=== PATIENT | female | born 1965 | race African-American/Black ===

== ENCOUNTER 2020-06-01 16:22 | Inpatient (IN) | payer OTHER ==
[~2020-06-01] VITALS: Ht 165.1 cm; Wt 48.3 kg
[2020-06-01] MEDS ORDERED: ENOX40DI9 SQ (20:03)
[2020-06-01] MEDS ORDERED: LISI-661 PO (20:03)
[2020-06-01] MEDS ORDERED: CARV3 PO (20:03)
[2020-06-01] MEDS ORDERED: ZOLPIDEM TARTRATE 10 MG TABLET PO PRN (23:45)
[2020-06-02 00:48] VITALS: BP 127/64
[2020-06-02] MEDS ORDERED: PNEUMOCOCCAL VACCINE POLYVALENT 0.5 ML VIAL [PPSV23] IM ONE (01:30)
[2020-06-02] MEDS ORDERED: INFLUENZA VIRUS VACCINE QVS 2020-21 (6MO+)/PF 60 MCG/0.5 ML SYRINGE IM ONE (01:30)
[2020-06-02] MEDS ORDERED: ALBUTEROL SULFATE HFA 90 MCG/PUFF 8 GM INHALER IH PRN (09:00)
[2020-06-02] MEDS ORDERED: LOPERAMIDE HCL 2 MG CAPSULE PO PRN (09:00)
[2020-06-02] MEDS ORDERED: NICOTINE 14 MG/24 HOUR PATCH TD PRN (09:00)
[2020-06-02] MEDS ORDERED: MAGNESIUM HYDROXIDE SUSPENSION 30 ML UDCUP PO PRN (09:00)
[2020-06-02] MEDS ORDERED: GuaiFENesin/D-METHORPHAN [SUGAR-FREE] 200-20MG/10 ML SYRUP UDCUP PO PRN (09:00)
[2020-06-02] MEDS ORDERED: DOCUSATE SODIUM 100 MG CAPSULE PO PRN (09:00)
[2020-06-02] MEDS ORDERED: ACETAMINOPHEN 325 MG TABLET PO PRN (09:00)
[2020-06-02] MEDS ORDERED: CloNIDine HCL 0.1 MG TABLET PO PRN (09:00)
[2020-06-02] MEDS ORDERED: ONDANSETRON HCL 4 MG TABLET PO PRN (09:00)
[2020-06-02] MEDS ORDERED: PETROLATUM,WHITE 28 GM JELLY TP PRN (09:00)
[2020-06-02] MEDS: LISINOPRIL 10 MG TABLET PO SCH (10:38)
[2020-06-02] MEDS: QUEtiapine FUMARATE 25 MG TABLET PO SCH ×2 (10:38→16:13)
[2020-06-02] MEDS: CARVEDILOL 3.125 MG TABLET PO SCH ×2 (10:38→16:13)
[2020-06-02 12:54] VITALS: BP 121/76
[2020-06-02] MEDS: LORazepam 2 MG TABLET PO PRN (13:03)
[2020-06-02] MEDS: HALOPERIDOL 5 MG TABLET PO PRN (13:03)
[2020-06-02 16:11] VITALS: BP 118/67
[2020-06-02] MEDS ORDERED: GLUCAGON,HUMAN RECOMBINANT 1 MG VIAL IM PRN (21:45)
[2020-06-02 23:58] LABS: GLUCOMETER DEV NAME(LOC) BV3S.; GLUCOSE,POINT OF CARE 218 MG/DL (70-110)
[2020-06-03 00:37] VITALS: BP 105/69
[2020-06-03] MEDS: INSULIN LISPRO 100 UNITS/ML SQ PRN ×3 (07:15→21:13)
[2020-06-03 07:18] LABS: GLUCOMETER DEV NAME(LOC) BV3S.; GLUCOSE,POINT OF CARE 257 MG/DL (70-110)
[2020-06-03 08:08] VITALS: BP 107/67
[2020-06-03] MEDS: CARVEDILOL 3.125 MG TABLET PO SCH ×2 (09:35→16:24)
[2020-06-03] MEDS: QUEtiapine FUMARATE 25 MG TABLET PO SCH ×2 (09:35→16:24)
[2020-06-03] MEDS: LISINOPRIL 10 MG TABLET PO SCH (09:35)
[2020-06-03 10:05] VITALS: BP 110/74
[2020-06-03] MEDS: LORazepam 2 MG TABLET PO PRN ×2 (10:05→16:24)
[2020-06-03 12:28] LABS: GLUCOMETER DEV NAME(LOC) BV3S.; GLUCOSE,POINT OF CARE 120 MG/DL (70-110)
[2020-06-03] MEDS ORDERED: NICOTINE POLACRILEX 2 MG LOZENGE PO PRN (12:45)
[2020-06-03 16:05] VITALS: BP 101/60
[2020-06-03 16:45] LABS: GLUCOMETER DEV NAME(LOC) BV3S.; GLUCOSE,POINT OF CARE 197 MG/DL (70-110)
[2020-06-03 22:02] LABS: GLUCOMETER DEV NAME(LOC) BV3S.; GLUCOSE,POINT OF CARE 243 MG/DL (70-110)
[2020-06-04 01:07] VITALS: BP 100/72
[2020-06-04 06:42] LABS: GLUCOMETER DEV NAME(LOC) BV3S.; GLUCOSE,POINT OF CARE 166 MG/DL (70-110)
[2020-06-04] MEDS: INSULIN LISPRO 100 UNITS/ML SQ PRN ×4 (06:43→20:47)
[2020-06-04 08:06] VITALS: BP 110/74
[2020-06-04] MEDS: BACLOFEN 10 MG TABLET PO SCH (08:42)
[2020-06-04] MEDS: QUEtiapine FUMARATE 25 MG TABLET PO SCH ×2 (08:43→16:16)
[2020-06-04] MEDS: AmLODIPine BESYLATE 10 MG TABLET PO SCH (08:43)
[2020-06-04] MEDS: LISINOPRIL 10 MG TABLET PO SCH (08:43)
[2020-06-04] MEDS: ATORVASTATIN CALCIUM 10 MG TABLET PO SCH (08:43)
[2020-06-04] MEDS: CARVEDILOL 3.125 MG TABLET PO SCH ×2 (08:43→16:16)
[2020-06-04 11:13] LABS: GLUCOMETER DEV NAME(LOC) BV3S.; GLUCOSE,POINT OF CARE 307 MG/DL (70-110)
[2020-06-04 16:04] VITALS: BP 118/78
[2020-06-04] MEDS: DIVALPROEX SODIUM 250 MG DR TABLET PO SCH (16:16)
[2020-06-04 16:25] LABS: GLUCOMETER DEV NAME(LOC) BV3S.; GLUCOSE,POINT OF CARE 164 MG/DL (70-110)
[2020-06-04] MEDS: QUEtiapine FUMARATE 100 MG TABLET PO SCH (20:17)
[2020-06-04 20:32] LABS: GLUCOMETER DEV NAME(LOC) BV3S.; GLUCOSE,POINT OF CARE 242 MG/DL (70-110)
[2020-06-05 05:11] VITALS: BP 114/74
[2020-06-05 06:19] LABS: GLUCOMETER DEV NAME(LOC) BV3S.; GLUCOSE,POINT OF CARE 203 MG/DL (70-110)
[2020-06-05] MEDS: INSULIN LISPRO 100 UNITS/ML SQ PRN ×2 (06:33→21:08)
[2020-06-05 08:22] VITALS: BP 118/79
[2020-06-05] MEDS: ATORVASTATIN CALCIUM 10 MG TABLET PO SCH (08:44)
[2020-06-05] MEDS: BACLOFEN 10 MG TABLET PO SCH (08:44)
[2020-06-05] MEDS: AmLODIPine BESYLATE 10 MG TABLET PO SCH (08:44)
[2020-06-05] MEDS: LISINOPRIL 10 MG TABLET PO SCH (08:44)
[2020-06-05] MEDS: CARVEDILOL 3.125 MG TABLET PO SCH ×2 (08:45→16:24)
[2020-06-05] MEDS: HALOPERIDOL 5 MG TABLET PO PRN (08:45)
[2020-06-05] MEDS: QUEtiapine FUMARATE 25 MG TABLET PO SCH ×2 (08:45→16:24)
[2020-06-05] MEDS: DIVALPROEX SODIUM 250 MG DR TABLET PO SCH ×2 (08:45→16:24)
[2020-06-05] MEDS: LORazepam 2 MG TABLET PO PRN (08:45)
[2020-06-05] MEDS ORDERED: INSULIN LISPRO 100 UNITS/ML SQ ONE (11:15)
[2020-06-05 11:17] LABS: GLUCOMETER DEV NAME(LOC) BV3S.; GLUCOSE,POINT OF CARE 449 MG/DL (70-110)
[2020-06-05 13:53] LABS: GLUCOMETER DEV NAME(LOC) BV3S.; GLUCOSE,POINT OF CARE 105 MG/DL (70-110)
[2020-06-05 16:14] VITALS: BP 121/74
[2020-06-05 16:40] LABS: GLUCOMETER DEV NAME(LOC) BV3S.; GLUCOSE,POINT OF CARE 76 MG/DL (70-110)
[2020-06-05] MEDS: INSULIN GLARGINE,HUM.REC.ANLOG 100 UNITS/ML SQ SCH (17:30)
[2020-06-05] MEDS: QUEtiapine FUMARATE 100 MG TABLET PO SCH (20:51)
[2020-06-05 21:04] LABS: GLUCOMETER DEV NAME(LOC) BV3S.; GLUCOSE,POINT OF CARE 265 MG/DL (70-110)
[2020-06-06 05:32] VITALS: BP 118/70
[2020-06-06] MEDS: IBUPROFEN 400 MG TABLET PO PRN ×2 (05:35→20:01)
[2020-06-06] MEDS: INSULIN LISPRO 100 UNITS/ML SQ PRN ×3 (06:42→16:59)
[2020-06-06 06:49] LABS: GLUCOMETER DEV NAME(LOC) BV3S.; GLUCOSE,POINT OF CARE 178 MG/DL (70-110)
[2020-06-06 08:33] VITALS: BP 100/69
[2020-06-06] MEDS: CARVEDILOL 3.125 MG TABLET PO SCH ×2 (09:00→16:41)
[2020-06-06] MEDS: AmLODIPine BESYLATE 10 MG TABLET PO SCH (09:00)
[2020-06-06] MEDS: LISINOPRIL 10 MG TABLET PO SCH (09:00)
[2020-06-06] MEDS: ATORVASTATIN CALCIUM 10 MG TABLET PO SCH (09:01)
[2020-06-06] MEDS: BACLOFEN 10 MG TABLET PO SCH (09:01)
[2020-06-06] MEDS: QUEtiapine FUMARATE 25 MG TABLET PO SCH ×2 (09:01→16:48)
[2020-06-06] MEDS: DIVALPROEX SODIUM 250 MG DR TABLET PO SCH ×2 (09:02→16:41)
[2020-06-06] MEDS: INSULIN GLARGINE,HUM.REC.ANLOG 100 UNITS/ML SQ SCH ×2 (09:45→16:59)
[2020-06-06 09:53] LABS: GLUCOMETER DEV NAME(LOC) BV3S.; GLUCOSE,POINT OF CARE 331 MG/DL (70-110)
[2020-06-06 12:39] LABS: GLUCOMETER DEV NAME(LOC) BV3S.; GLUCOSE,POINT OF CARE 343 MG/DL (70-110)
[2020-06-06] MEDS: MAG HYDROX/AL HYDROX/SIMETH ES 30 ML SUSPENSION UDCUP PO PRN ×2 (13:29→17:47)
[2020-06-06 16:02] VITALS: BP 110/72
[2020-06-06 16:40] VITALS: BP 115/70
[2020-06-06 18:02] LABS: GLUCOMETER DEV NAME(LOC) BV3S.; GLUCOSE,POINT OF CARE 370 MG/DL (70-110)
[2020-06-06] MEDS: QUEtiapine FUMARATE 100 MG TABLET PO SCH (20:01)
[2020-06-06 21:20] LABS: GLUCOMETER DEV NAME(LOC) BV3S.; GLUCOSE,POINT OF CARE 101 MG/DL (70-110)
[2020-06-07 04:05] VITALS: BP 108/67
[2020-06-07] MEDS: IBUPROFEN 400 MG TABLET PO PRN ×2 (05:02→20:35)
[2020-06-07 05:20] LABS: GLUCOMETER DEV NAME(LOC) BV3S.; GLUCOSE,POINT OF CARE 72 MG/DL (70-110)
[2020-06-07] MEDS: DIVALPROEX SODIUM 250 MG DR TABLET PO SCH ×2 (08:09→16:23)
[2020-06-07] MEDS: QUEtiapine FUMARATE 25 MG TABLET PO SCH (08:09)
[2020-06-07] MEDS: LISINOPRIL 10 MG TABLET PO SCH (08:09)
[2020-06-07] MEDS: BACLOFEN 10 MG TABLET PO SCH (08:09)
[2020-06-07] MEDS: CARVEDILOL 3.125 MG TABLET PO SCH ×2 (08:10→16:46)
[2020-06-07] MEDS: ATORVASTATIN CALCIUM 10 MG TABLET PO SCH (08:10)
[2020-06-07] MEDS: AmLODIPine BESYLATE 10 MG TABLET PO SCH (08:10)
[2020-06-07 08:53] VITALS: BP 107/73
[2020-06-07] MEDS: INSULIN GLARGINE,HUM.REC.ANLOG 100 UNITS/ML SQ SCH ×2 (09:00→16:38)
[2020-06-07 09:09] LABS: BASOPHILS % (AUTO) 0.4 % (0.0-2.0); EOSINOPHILS % (AUTO) 4.3 % (1.0-6.0); HEMATOCRIT 29.8 % (36-46); HEMOGLOBIN 9.4 g/dL (12.0-16.0); LYMPHOCYTES # (AUTO) 1.1 K/uL (1.0-4.8); LYMPHOCYTES % (AUTO) 33.1 % (22.0-44.0); MEAN CORPUSCULAR HEMOGLOBIN 25.4 pg (26.0-34.0); MEAN CORPUSCULAR HGB CONC 31.5 G/dL (31.0-37.0); MEAN CORPUSCULAR VOLUME 81 fL (80-100); MONOCYTES # (AUTO) 0.3 K/uL (0.1-1.0); MONOCYTES % (AUTO) 9.7 % (2.0-9.0); NEUTROPHILS # (AUTO) 1.7 K/uL (1.8-7.7); NEUTROPHILS % (AUTO) 52.5 % (40.0-70.0); RED BLOOD CELL COUNT(AUTO) 3.69 MIL/uL (4.00-5.20); RED CELL DISTRIBUTION WIDTH 14.4 % (11.5-14.5)
[2020-06-07 09:19] LABS: PLATELET COUNT (AUTO) 100 K/uL (150-450)
[2020-06-07 09:22] LABS: COVID AG,FIA SOURCE NASOPHARYNGEAL
[2020-06-07 09:32] LABS: HEMOGLOBIN A1C 7.7 % (3.8-5.6)
[2020-06-07 10:40] LABS: ALANINE AMINOTRANSFERASE 38 U/L (12-78); ALBUMIN 3.1 g/dL (3.4-5.0); ALKALINE PHOSPHATASE 85 U/L (46-116); ANION GAP 7 mmol/L (8-16); ASPARTATE AMINOTRANSFERASE 38 U/L (15-37); BILIRUBIN,TOTAL 0.5 mg/dL (0.1-1.0); CALCIUM, TOTAL 8.6 mg/dL (8.8-10.5); CARBON DIOXIDE 26 mmol/L (22-29); CHLORIDE 102 mmol/L (98-107); CHOL/HDL RATIO 1.8 (3.9-5.7); CHOLESTEROL 98 mg/dL (131-200); CREATININE 0.84 mg/dL (0.60-1.30); FREE T4 (FREE THYROXINE) 1.09 ng/dL (0.76-1.46); GLOMERULAR FILTR. RATE CALC > 60 mL/min (>60); GLUCOSE,RANDOM 100 mg/dL (70-110); HDL CHOLESTEROL 53 mg/dL (40-60); LDL CHOL (CALC.) 38 mg/dL (0-130); POTASSIUM 4.5 mmol/L (3.5-5.1); SODIUM SERUM 135 mmol/L (136-145); THYROID STIMULATING HORMONE 0.67 uIU/mL (0.36-3.74); TOTAL PROTEIN, SERUM 7.2 g/dL (6.4-8.2); TRIGLYCERIDES 37 mg/dL (15-150); UREA NITROGEN, BLOOD 18 mg/dL (7-18)
[2020-06-07] MEDS: INSULIN LISPRO 100 UNITS/ML SQ PRN ×3 (11:46→20:31)
[2020-06-07 13:02] LABS: GLUCOMETER DEV NAME(LOC) BV3N.; GLUCOSE,POINT OF CARE 344 MG/DL (70-110)
[2020-06-07 16:07] VITALS: BP 101/72
[2020-06-07] MEDS: QUEtiapine FUMARATE 100 MG TABLET PO SCH (16:23)
[2020-06-07 16:41] LABS: GLUCOMETER DEV NAME(LOC) BV3S.; GLUCOSE,POINT OF CARE 220 MG/DL (70-110)
[2020-06-07 20:34] LABS: GLUCOMETER DEV NAME(LOC) BV3S.; GLUCOSE,POINT OF CARE 210 MG/DL (70-110)
[2020-06-07] MEDS ORDERED: QUEtiapine FUMARATE 200 MG TABLET PO SCH (21:00)
[2020-06-08 06:19] VITALS: BP 100/61
[2020-06-08 06:28] LABS: GLUCOMETER DEV NAME(LOC) BV3S.; GLUCOSE,POINT OF CARE 116 MG/DL (70-110)
[2020-06-08] MEDS: CARVEDILOL 3.125 MG TABLET PO SCH (08:13)
[2020-06-08] MEDS: LISINOPRIL 10 MG TABLET PO SCH (08:13)
[2020-06-08] MEDS: ATORVASTATIN CALCIUM 10 MG TABLET PO SCH (08:13)
[2020-06-08] MEDS: QUEtiapine FUMARATE 100 MG TABLET PO SCH (08:13)
[2020-06-08] MEDS: AmLODIPine BESYLATE 10 MG TABLET PO SCH (08:13)
[2020-06-08] MEDS: DIVALPROEX SODIUM 250 MG DR TABLET PO SCH (08:13)
[2020-06-08 08:17] VITALS: BP 120/69
[2020-06-08 08:30] LABS: APPEARANCE,URINE CLEAR (CLEAR); BILIRUBIN,URINE NEGATIVE (NEGATIVE); GLUCOSE, URINE (UA) >=1000 mg/dL (NEGATIVE); KETONES,URINE NEGATIVE (NEGATIVE); LEUKOCYTE ESTERASE ,URINE NEGATIVE (NEGATIVE); NITRATE,URINE NEGATIVE (NEGATIVE); OCCULT BLOOD,URINE NEGATIVE (NEGATIVE); PH,URINE 6.5 (5.0-8.0); PROTEIN,URINE NEGATIVE (NEGATIVE); UROBILINOGEN,URINE 0.2 mg/dL (<=1.0)
[2020-06-08] MEDS: INSULIN GLARGINE,HUM.REC.ANLOG 100 UNITS/ML SQ SCH (08:43)
[2020-06-08] MEDS ORDERED: FOLIC ACID 1 MG TABLET PO SCH (09:00)
[2020-06-08 09:40] LABS: BACTERIA,URINE None Seen /HPF (None Seen); RBC,URINE None Seen /HPF (0-2); SQUAMOUS EPITHELIAL CELL,UR Many /LPF (None Seen); WBC,URINE None Seen /HPF (0-5)
[2020-06-08] MEDS: INSULIN LISPRO 100 UNITS/ML SQ PRN (11:48)
[2020-06-08 12:00] LABS: GLUCOMETER DEV NAME(LOC) BV3S.; GLUCOSE,POINT OF CARE 281 MG/DL (70-110)
[2020-06-08] MEDS ORDERED: FERROUS SULFATE 325 MG EC TABLET PO SCH (12:00)
[2020-06-08] MEDS ORDERED: INSLAN SQ (12:13)
[2020-06-08] MEDS ORDERED: ATOR10TA84 PO (12:16)
[2020-06-08] MEDS ORDERED: AMLO-258 PO (12:16)
[2020-06-08] MEDS ORDERED: FERR-89 PO (12:16)
[2020-06-08] MEDS ORDERED: LISI-661 PO (12:16)
[2020-06-08] MEDS ORDERED: BACL10TA PO ×2 (12:16→12:18)
[2020-06-08] MEDS ORDERED: FOLI0.4T6 PO (12:20)
[2020-06-08] MEDS ORDERED: FOLI0.4T91 PO (12:22)
[2020-06-08] MEDS ORDERED: FOLI20CA PO (12:23)
[2020-06-08] MEDS ORDERED: DIVA-111 PO (12:27)
[2020-06-08] MEDS ORDERED: QUET100T PO (12:27)
[2020-06-08] MEDS ORDERED: QUET200T PO (12:27)
[2020-06-08] MEDS: BACLOFEN 10 MG TABLET PO SCH (12:41)
== END 2020-06-08 13:45 | disposition home or self-care (01) | DRG 885 ==
LOC: B3A 23:47
PROVIDERS: ADMIT Psychiatry & Neurology Child & Adolescent Psychiatry; ATTEND Psychiatry & Neurology Child & Adolescent Psychiatry
DX: F23 Brief psychotic disorder (principal); K86.1 Other chronic pancreatitis; D72.819 Decreased white blood cell count, unspecified; E56.9 Vitamin deficiency, unspecified; E78.5 Hyperlipidemia, unspecified; F22 Delusional disorders; I10 Essential (primary) hypertension; K74.60 Unspecified cirrhosis of liver; Z28.21 Immunization not carried out because of patient refusal
CPT/HCPCS: 83036; 84439; 84443; 87426; J1815